=== PATIENT | male | born 1965 | race African-American/Black ===

== ENCOUNTER 2024-08-21 09:57 | Emergency (ER) | payer MEDICAID, OTHER ==
[~2024-08-21] VITALS: Ht 170.2 cm; Wt 91.0 kg
[2024-08-21 10:00] VITALS: O2SAT 100
[2024-08-21 10:33] LABS: CHLORIDE 105 mEq/L (98-107); DIFFERENTIAL COMMENT 0; EOSINOPHILS % 5.1 % (0.0-5.0); HEMATOCRIT. 38.7 % (42.0-52.0); HEMOGLOBIN. 11.8 g/dL (14.0-18.0); LYMPHOCYTES % 24.6 % (20.0-50.0); MEAN CORPUSCULAR HEMOGLOBIN 23.7 pg (28.0-32.0); MEAN CORPUSCULAR HGB CONC 30.5 g/dL (31.0-37.0); MEAN CORPUSCULAR VOLUME 77.8 fL (80.0-94.0); MEAN PLATELET VOLUME 8.3 fl (7.4-10.4); NEUTROPHILS % 60.3 % (40.0-76.0); PLATELET 242 x1000/uL (130-400); POTASSIUM 4.2 mEq/L (3.5-5.1); RED BLOOD CELL COUNT 4.97 mill/uL (4.7-6.1); RED CELL DISTRIBUTION WIDTH 16.4 % (11.6-14.6); SODIUM 141 mEq/L (136-145); WHITE BLOOD COUNT 6.2 x1000/uL (4.5-11.0)
[2024-08-21] MEDS: SODIUM CHLORIDE 0.9% 1,000 ML IV ONE (10:33)
[2024-08-21 10:34] LABS: CALCIUM 9.4 mg/dL (8.7-10.4); CARBON DIOXIDE 23 mEq/L (21-32)
[2024-08-21 10:39] LABS: CREATININE 1.2 mg/dL (0.6-1.3); GLUCOSE 125 mg/dL (70-105); UREA NITROGEN BLOOD 13 mg/dL (9-23)
[2024-08-21 10:40] LABS: ETHANOL BLOOD 43 mg/dL (<10)
[2024-08-21 10:51] LABS: TROPONIN I HIGH SENSITIVITY < 4 ng/L (3.0-53)
[2024-08-21 11:11] LABS: ALANINE AMINOTRANSFERASE 18 IU/L (10-49); ALBUMIN 4.1 g/dL (3.2-4.8); ASPARTATE AMINOTRANSFERASE 30 IU/L (<34); BILIRUBIN DIRECT 0.1 mg/dL (<=3.0); BILIRUBIN TOTAL 0.6 mg/dL (0.1-1.0); PROTEIN TOTAL 7.3 g/dL (6.0-8.3)
[2024-08-21] MEDS: LIDOCAINE HCL 1% 20ML VIAL INFIL ONE (11:32)
[2024-08-21] MEDS: BACITRACIN ZINC OINT UDPKT TOP ONE (12:04)
[2024-08-21 12:53] LABS: TROPONIN I HIGH SENSITIVITY 4 ng/L (3.0-53)
[2024-08-21 13:49] VITALS: BP 137/82; PULSE 80; RESP 15; TEMP 37.2; O2SAT 100
== END 2024-08-21 14:13 | disposition left against medical advice (07) ==
LOC: ER 09:57 → EDBEDREQTM 13:16 → EDBEDREQ 13:16 → ER 14:13
DX: S01.81XA Laceration without foreign body of other part of head, initial encounter (principal); R55 Syncope and collapse; I10 Essential (primary) hypertension; E86.0 Dehydration; F17.210 Nicotine dependence, cigarettes, uncomplicated; Z86.73 Personal history of transient ischemic attack (TIA), and cerebral infarction without residual deficits; Z79.899 Other long term (current) drug therapy; W07.XXXA Fall from chair, initial encounter; Y93.01 Activity, walking, marching and hiking; Y92.89 Other specified places as the place of occurrence of the external cause; Y99.8 Other external cause status
CPT/HCPCS: 12014; 36415; 70486; 71045; 80048; 80076; 80320; 83880; 84484; 85025; 93005; 99285; G0480